=== PATIENT | male | born 1965 | race Caucasian/White ===

== ENCOUNTER 2019-02-10 18:08 | Emergency (ER) | payer MEDICAID ==
[~2019-02-10] VITALS: Ht 177.8 cm; Wt 85.0 kg
[~2019-02-10 18:08] MED LIST: PANT40TA5 PO; TRAZ-137 PO
--- NOTE | 2019-02-10 18:32 | NUR ---
BIB [facility]. C/O EtOH withdrawl. Last drink was last night. Reports also doing meth last night. [facility] saw some lice on him, so he was decon'd prior to being place in room. C/O nausea and upper ABD pain, non-tender on palpation. Placed on NIBP and puslse ox. Will continue to monitor.
[2019-02-10] MEDS ORDERED: ONDANSETRON ODT 4 MG ONE (18:56)
[2019-02-10] MEDS ORDERED: LORazepam 1MG TABLET ONE (18:56)
[2019-02-10] MEDS ORDERED: ONDANSETRON ODT 4 MG PO ONE (19:00)
[2019-02-10] MEDS ORDERED: LORazepam 1MG TABLET PO ONE (19:00)
--- NOTE | 2019-02-10 19:00 | NUR ---
Medicated per [facility].
[2019-02-10 19:04] LABS: BASOPHILS # (AUTO) 0.02 x10^3/uL (0-0.1); BASOPHILS % (AUTO) 0 % (0-1); EOSINOPHILS % (AUTO) 0 % (1-7); LYMPHOCYTES # (AUTO) 0.98 x10^3/uL (1-3.4); LYMPHOCYTES % (AUTO) 17 % (22-44); MD NO; MEAN CORPUSCULAR HEMOGLOBIN 24.2 pg (27.5-34.5); MEAN CORPUSCULAR HGB CONC 32.1 g/dL (33.2-36.2); MEAN CORPUSCULAR VOLUME 75.4 fL (81-97); MEAN PLATELET VOLUME 9.2 fL (7.4-10.4); MONOCYTES # (AUTO) 0.58 x10^3/uL (0.2-0.8); MONOCYTES % (AUTO) 10 % (2-9); NEUTROPHILS # (AUTO) 4.32 x10^3/uL (1.8-6.8); NEUTROPHILS % (AUTO) 73 % (42-75); PLATELET COUNT 141 x10^3/uL (130-400); RED CELL DISTRIBUTION WIDTH 21.1 % (9.4-14.8)
[2019-02-10 19:16] LABS: ALANINE AMINOTRANSFERASE 97 U/L (12-78); ALBUMIN 3.2 g/dL (3.4-5.0); ANION GAP 11 mmol/L (5-15); CALCIUM 8.7 mg/dL (8.5-10.1); CHLORIDE 104 mmol/L (98-107); CREATININE 0.84 mg/dL (0.7-1.3)
[2019-02-10 19:18] LABS: ALKALINE PHOSPHATASE 133 U/L (45-117); BILIRUBIN,TOTAL 2.1 mg/dL (0.2-1.0); TOTAL PROTEIN 8.1 g/dL (6.4-8.2)
--- NOTE | 2019-02-10 19:45 | NUR ---
Resting in [facility]. No needs.
[2019-02-10 20:30] VITALS: BP 147/88
--- NOTE | 2019-02-10 20:39 | NUR ---
Patient/Caregiver given discharge instructions and they have confirmed that they understand the instructions. Patient ambulatory with steady gait.
== END 2019-02-10 20:54 | disposition home or self-care (01) ==
LOC: ED 20:48
DX: K29.20 Alcoholic gastritis without bleeding (principal); F10.129 Alcohol abuse with intoxication, unspecified; F15.129 Other stimulant abuse with intoxication, unspecified; K74.60 Unspecified cirrhosis of liver; Z86.19 Personal history of other infectious and parasitic diseases
CPT/HCPCS: 36415; 80053; 80307; 83690; 85025; 99283; Q0162

== ENCOUNTER 2019-02-11 20:07 | Emergency (ER) | payer MEDICAID ==
--- NOTE | 2019-02-11 20:19 | NUR ---
PT HAD NO MEDICAL COMPLAINT AND JUST WANTED A PLACE TO SLEEP.
== END 2019-02-11 20:21 | disposition left against medical advice (07) ==
LOC: ED 20:20
DX: Z53.21 Procedure and treatment not carried out due to patient leaving prior to being seen by health care provider (principal)